=== PATIENT | female | born 1975 | race Caucasian/White ===

== ENCOUNTER → 2016-07-13 | Outpatient (CLI) | payer OTHER ==
[~2016-07-13] MED LIST: AMIT100T PO; FLUO40CA2 PO; HYDR-882 PO; LEVO150T5 PO
[2016-07-13 16:33] LABS: HEMOGLOBIN 14.3 g/dL (11.7-16.4)
[2016-07-13 16:43] LABS: BLOOD UREA NITROGEN 11 mg/dL (7-18)
[2016-07-13 16:46] LABS: ASPARTATE AMINO TRANSFERASE 19 U/L (15-37)
== END | disposition home or self-care (01) ==
LOC: STAR 15:12
PROVIDERS: ATTEND Orthopaedic Surgery Orthopaedic Surgery of the Spine
DX: Z01.818 Encounter for other preprocedural examination (principal); M47.897 Other spondylosis, lumbosacral region; R79.1 Abnormal coagulation profile
CPT/HCPCS: 36415; 71020; 80053; 81001; 85025; 85610; 85651; 85730; 93005